=== PATIENT | female | born 1995 ===

== ENCOUNTER → 2020-10-19 | Outpatient (REF) | payer OTHER ==
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
== END ==
LOC: M LAB REF 16:05
PROVIDERS: ATTEND Physician Assistant Medical
DX: J02.9 Acute pharyngitis, unspecified (principal)